=== PATIENT | female | born 1955 | race Hispanic/Latino ===

== ENCOUNTER 2017-12-30 08:42 | Day surgery (SDC) | payer BC ==
[2017-12-30] MEDS ORDERED: NA CHLORIDE 0.9% 1,000 ML ONE (08:55)
[2017-12-30] MEDS ORDERED: FENTANYL CITR 100 MCG/2 ML ONE (10:35)
[2017-12-30] MEDS ORDERED: MIDAZOLAM HCL 2 MG/2 ML INJ ONE (10:35)
[2017-12-30] MEDS ORDERED: PROPOFOL 200 MG/20 ML VIAL IV ONE ×2 (10:35→11:26)
[2017-12-30] MEDS: LIDOCAINE 1% W/EPI 1:100,000 MDV 50 ML VIAL ONE ×2 (10:49→11:04)
--- NOTE | 2017-12-30 13:29 | OP ---
Date of Procedure: 12/30/2017 Surgeon: Allie Vu MD Street Contractor: None. Preoperative Diagnoses: Postmenopausal bleeding, uterovaginal prolapse, cervical polyp. Postoperative Diagnoses: Postmenopausal bleeding, uterovaginal prolapse, cervical polyp. Procedures Performed: Hysteroscopy, dilation and curettage, and cervical polypectomy. Estimated Blood Loss: Minimal. Complications: None. Drains: None. Specimens: Endometrial curettings, which were very scant, and cervical polyp. Findings: The patient with stage II anterior wall prolapse, uterine prolapse, and stage II posterior wall prolapse. POP-Q is 0, +1, -1, genital hiatus 5-6 cm. Perineal body thin. Vaginal length 7 cm, posterior wall 0, -1, and -2. Findings in the uterus, cavity was empty. The polyp at the cervix removed. That was present at the 2 o'clock position in its entirety. Description Of Procedure: After informed consent was verified, patient was brought to the OR. She w as placed on the operating table in a supine fashion. After MAC was given and patient was placed in dorsal lithotomy position, the patient started to cough and was anxious. So at this point, we decide d to give her general anesthetic to keep her fully sedated without any risk of moving at the time of the procedure. After LMA was placed, and the general anesthetic was completely effective, we did her procedure. Pel anna exam was performed and POP-Q as above. Cervix was prepped with Betadine x3. Anterior lip graspe d with 2 Allis clamps. The cervical polyp was visualized. The ring forceps was placed on the polyp, and this was rotated till the polyp came out. The base of the polyp was also cleaned out with anoth er round of turning it till the base was also and all the specimen was handed off for perma ne pathology. Diagnostic slimline hysteroscope was used to pass the cervical canal, traversing the canal under dire ct vision. Uterine cavity was entered. It was empty. The endometrial lining was thin. There did n ot appear to be any internal thickening or polyp. The entire cavity was visualized. The scope was removed after making sure that there was no further cavity length left above the area that was evaluated, since this appeared to have some adhesions. After the scope was removed, endometrial curettings were performed, which was scant, which was consis tent with the cavity as visualized. Then all instruments were removed. Instrument, needle, and spon ge counts were done and were correct at the end of the case. The specimens sent for permanent pathol ogvianney. She has a followup appointment with me in 1 week for results. BERKLEY/SIRIA Voice ID: [id number] Report ID: [id number]
== END 2017-12-30 13:20 | disposition home or self-care (01) ==
LOC: OR 08:42
PROVIDERS: ATTEND Obstetrics & Gynecology
PROC: 0UDB7ZX Extraction of Endometrium, Via Natural or Artificial Opening, Diagnostic (ICD-10-PCS; 2017-12-30)
PROC: 0UBC8ZX Excision of Cervix, Via Natural or Artificial Opening Endoscopic, Diagnostic (ICD-10-PCS; principal; 2017-12-30 10:30)
DX: N95.0 Postmenopausal bleeding (principal); N84.1 Polyp of cervix uteri; N81.2 Incomplete uterovaginal prolapse; E11.9 Type 2 diabetes mellitus without complications; Z88.6 Allergy status to analgesic agent
CPT/HCPCS: 82962; 86304; 88305; J2250; J3010; J7030

== ENCOUNTER 2018-04-07 10:19 | Day surgery (SDC) | payer BC ==
[2018-04-04 12:02] LABS: Urine Appearance CLEAR; Urine Bilirubin NEGATIVE (NEG); Urine Blood TRACE (NEG); Urine Color YELLOW; Urine Glucose NEGATIVE (NEG); Urine Protein NEGATIVE (NEG); Urine Specific Gravity 1.015 (1.005-1.030); Urine Urobilinogen 0.2 mg/dL (0.2-1.0); Urine pH 5.5 (5.0-7.0)
[2018-04-04 12:03] LABS: Urine Microscopic Reflex ORDER UMIC
[2018-04-04 12:06] LABS: Absolute Lymphocytes (CBC) 1.8 K/uL (0.7-4.9); Absolute Monocytes 0.3 K/uL (0.1-1.3); Basophils % 0.5 % (0-1.3); Eosinophils % 3.4 % (0-4.4); Hematocrit 40.8 % (36.0-45.0); Lymphocytes % 33.6 % (15.3-44.8); MCH 30.6 pg (27.0-35.0); MPV 7.4 fL (7.6-11.3); Monocytes % 6.6 % (3.3-12.3); RBC Red Blood Cell Count 4.53 M/uL (3.86-4.86)
[2018-04-04 12:15] LABS: Urine Bacteria <20 /HPF (<20); Urine Culture Reflex Order NOT NEEDED; Urine Mucus SLIGHT /HPF (NONE SEEN); Urine RBC <5 /HPF (NONE SEEN)
[2018-04-07] MEDS ORDERED: NA CHLORIDE 0.9% 1,000 ML ONE ×2 (10:39→12:04)
[2018-04-07] MEDS ORDERED: SCOPOLAMINE HYDROBROMIDE PATCH TD ONE (10:39)
[2018-04-07] MEDS ORDERED: ROCURONIUM 50 MG/5 ML VIAL IV ONE ×2 (10:53→13:06)
[2018-04-07] MEDS ORDERED: PROPOFOL 200 MG/20 ML VIAL IV ONE (10:53)
[2018-04-07] MEDS ORDERED: LIDOCAINE 2% MPF 5 ML VIAL ONE (10:54)
[2018-04-07] MEDS ORDERED: DEXAMETHASONE 10 MG/ML VIAL ONE (10:54)
[2018-04-07] MEDS ORDERED: GLYCOPYRROLATE 0.2 MG/ML SYR ONE ×2 (10:54)
[2018-04-07] MEDS ORDERED: FENTANYL CITR 250 MCG/5 ML ONE (10:55)
[2018-04-07] MEDS ORDERED: MIDAZOLAM HCL 2 MG/2 ML INJ ONE (10:56)
[2018-04-07] MEDS ORDERED: ONDANSETRON HCL 40 MG/20 ML VIAL ONE (10:56)
[2018-04-07] MEDS: CEFAZOLIN 1GM (PREMIX IV) 1 GM/50 ML BAG ONE ×2 (12:02→12:47)
[2018-04-07] MEDS ORDERED: EPHEDRINE SULF 50 MG/10 ML SYR ONE (12:31)
[2018-04-07] MEDS ORDERED: Ringers Lactate 1,000 ML IV ONE (13:26)
[2018-04-07] MEDS ORDERED: VASOPRESSIN 20 UNIT/ML VIAL ONE (13:38)
[2018-04-07] MEDS ORDERED: NA CHLORIDE 0.9% 0 ML IV ONE (13:39)
[2018-04-07] MEDS ORDERED: LIDOCAINE 1% W/EPI 1:100,000 MDV 50 ML VIAL ONE (14:28)
[2018-04-07] MEDS ORDERED: CEFAZOLIN SODIUM 1 GM/VIAL ONE ×2 (14:35→14:39)
[2018-04-07] MEDS ORDERED: NEOSTIGMINE 1 MG/ML -5 ML SYRINGE ONE (15:21)
[2018-04-07] MEDS ORDERED: HYDROCODONE/APAP 5/325 MG TAB ONE (16:42)
[2018-04-07] MEDS ORDERED: PROMETHAZINE 25 MG/ML VIAL ONE (16:42)
--- NOTE | 2018-04-08 13:49 | OP ---
Date of Procedure: 04/07/2018 Surgeon: Allie Vu MD Car Rental Sales Assistant: Geetha Cartwright. Preoperative Diagnoses: Postmenopausal bleeding, pelvic mass, uterovaginal prolapse, stress urinary incontinence. Postoperative Diagnoses: Postmenopausal bleeding, pelvic mass, uterovaginal prolapse, stress urinary incontinence, with pelvic mass and right adnexal mass. Procedures Performed: 1.Total laparoscopic hysterectomy, bilateral salpingo-oophorectomy, pelvic washings. 2.Uterosacral ligament suspension, colpopexy bilaterally, cystoscopy. 3.Incidental superficial cystotomy repair. Ebl: Less than 100, minimal. Complications: Superficial laceration of the bladder leading to repair. Drains: Vanegas catheter. Specimens: Uterus, bilateral tubes, ovaries, pelvic washings, and a right adnexal mass. Disposition: The patient's condition is stable. Findings: Uterus anteflexed with the leiomyoma. A left adnexal mass was seen separate from the ovar y and the tube attached to the distal part of the tube and hanging in the posterior cul-de-sac. Left ovary and tube were normal. The superficial bladder laceration occurred at the time of retraction f or vaginal cuff repair. This was repaired without any problems, and after cystoscopy was performed, there were patent bilateral ureters. The strong jets of urine from both were promptly, then the 3-0 Vicryl suture that was used for closure of the cystotomy appeared to have gone through the mucosa of the bladder. The tiny little area was seen at the dome of the bladder above the level of the vaginal cuff, way above the level of the trigone. This was just left in place. The bladder was filled and drained and there was no leakage even at the detection of the laceration and after repair as well. Indications: The patient is a 63-year-old referred for prolapse. She had postmenopausal bleeding as well. She was evaluated with endometrial cavity visualization and sampling and they were both negat sera for any atypia or malignancy. On ultrasound, she was found to have an adnexal mass about 5 cm. The CA-125 was very low, probably 5. Then on her POP-Q exam, her prolapse was stage II, Mohs defect, biggest defect noted mostly at the apex and when the apex was replaced to the top, the anterior wall defect was inconspicuous. The cough stress test was positive in the office. The patient presented with stress urinary incontinence at the time of her preop, and plan was made to perform a sling at th e end of the procedure. Description Of Procedure: On the day of the surgery, she was re-consented, 1 g of Ancef was given. She was taken back to the OR, placed in a supine fashion on the operating table. After general anest hesia was given, she was placed in a dorsal lithotomy position using Rogelio stirrups. Pelvic exam was performed. Pop-Q was reconfirmed. Abdomen, vulva, vagina, and perineum were prepped and draped in a sterile fashion also making sure that we were ready for the vaginal procedure. On examination here, I noted that there was after reducing the anterior defect significant posterior wall defect as well and mostly perineocele with a wide genital hiatus above 5 cm. However, the patie nt was not consented for any posterior repair or perineorrhaphy at this time, so, no plans were made to perform this. After Vanegas was inserted and attached for retrograde filling to an LR bag, emptied 300 with cysto-tub ing. Large VCare was introduced into the uterus and fixed in place. This area was draped. A 1-cm infraumbilical incision was made with a scalpel using the open laparoscopy technique. Fascia was incised and tagged. Peritoneum was entered with S-retractors and Katie introduced. Site of ent ry was checked and unremarkable. Upper abdominal surface was completely unremarkable as well. Liver and appendix were normal. After placing the patient in Trendelenburg position, epiploica of the sigmoid were sutured with the h elp of a 3-0 Monocryl and brought out through the left upper quadrant with the Julian-Lm needle for retraction. This was placed appropriately without excessive tension. A 1 cm suprapubic, 2 0.5 cm left lower quadrant, right lower quadrant incisions were made with a scal pel and ports placed without any problems. Ureters were traced in their entire course and they were without any distortion from the pelvic brim to the ureteric tunnels. The bladder appeared to be redu ndant, however, no other remarkable changes. The right adnexal mass was attached to distal part of t he tube and the lower pole and medial pole of the ovary about 5 cm with the smooth surface and tubal epithelium was stretched out on the fimbriated end. With the 5 mm LigaSure, the adnexal mass was removed and placed in the right paracolic gutter and hys terectomy was started. Mesosalpinx tube, utero-ovarian ligament was all taken down. The round ligam ent was taken down and the anterior and posterior layers of the broad ligament were opened up. The a nterior was taken all the way over to the opposite round ligament creating a bladder flap and retract ing the bladder inferiorly. The VCare cup was well visualized and the dissection was performed below the level of the cup by retracting the bladder here. Posterior aspect of the peritoneum was taken down to the posterior cup on the left side. Then, the b road ligament was skeletonized to expose the vessels on the opposite side, similar dissection was per formed taking down the utero-ovarian tube, mesosalpinx, round ligament, anterior and posterior broad ligament and then the broad ligament itself with the help of the LigaSure. After the vessels were sk eletonized, then the anterior vaginal wall was dissected. A monopolar hook blade was used to create an incision to enter the vesicovaginal space. Once this was entered, the bladder was dissected infer iorly. There were adhesions of the bladder here but I did not push the bladder completely easily, so they were retracted gently with dissection with the sharp scissors using the LigaSure tip and then t he LigaSure cautery as needed in a limited fashion. Once the anterior vaginal wall was exposed at le ast 2 cm, then dissection was performed posteriorly to make sure that the posterior peritoneum was ta ubaldo down, so the attachment of the uterosacrals or the remnants of the uterosacrals were well visuali zed. The vessels were taken down on both sides. Cardinal ligament was taken down on both sides whic h were very little and colpotomy was performed with a monopolar hook blade in a circumferential fashi on. The specimen was detached and pulled out through the vagina. Vaginal occluder bulb was placed. Then, the left tube and ovary were removed with the help of the LigaSure as well as the right tube a nd ovary. These were all placed in the EndoCatch bag, placed vaginally along with the adnexal mass. The bag was closed and retrieved through the vagina. After the vaginal occluder bulb was placed, this was distending the vaginal canal too much, so I plac ed a glove with the lap pads stuffed in it for retraction of the vagina. Vaginal closure was perform ed with the help of a 0 Vicryl stitch at the left angle, tied in an interrupted fashion and one of th e tails left long. Then, 0 Vicryl suture was taken. A simple suture was placed at the angle closing the angle lateral to it by placing the knot there. Then continuously running this with a continuous running fashion all the way to the left end of the cuff and here this was tied to the lateral part. While I was closing the cuff, there was needed to be retraction of bladder because this was despite complete drainage was falling in the field of vision. So, as there was retraction here, I noted that also at the dome of the bladder, there was a superficial laceration of the bladder as my fast food assistant restaurant manager w as retracting this with an atraumatic grasper. So, this was about less than 1 cm, maybe about half a centimeter and this was mostly the muscle, so the bladder was filled at this point. There was no le ak at all observed, then placed the 3-0 Vicryl suture in mattress fashion and tied this down. There was excellent approximation of the muscularis and the bladder was re-distended. There was no leak. Intracorporeal knots were placed to tie that. Uterosacral suspension was then performed by retracting the top of the vagina with the pushing on the vaginal occluder. Then, the uterosacral ligaments were visualized at least 7-8 cm above the level o f the vaginal cuff from the mid pelvic area. The right one was first sutured from lateral to medial with 0 PDS sutures were taken and reattached to the top of the vagina to the posterior rectovaginal s eptum and then anterior fascia of the anterior vaginal wall. With these sutures were taken and the c uff was imbricated, the suture was tied down. Then, in a similar fashion, the suture was taken throu gh the left uterosacral starting at the mid pelvis and coming down all the way with the 3 running sut ures. Then, the posterior vaginal wall and the anterior vaginal wall imbricating the closure. The s uture was tied down. The culdoplasty was performed with the help of 3-0 Vicryl in the posterior peritoneum bringing it tog ether and then anteriorly closing the peritoneum on top of the bladder, bringing the anterior periton eum over the cuff without exposure of any sutures of the superficial laceration repair. The peritone um was closed completely over this and cystoscopy was performed with the 17-Kittitian sheath, 30-degree lens and normal saline for distention medium. There was an excellent filling and both ureteric orifi dali were well visualized and there were strong jets of urine from them promptly. At the dome of the bladder, I noted a suture. The 30-degree lens was changed to 70. Once there was a pucker, and then with the 70, I was able to realize that this was a 3-0 Vicryl suture. It was a very 2 mm size exposu re into the mucosa left with an intact bladder mucosa without any appearance of any trauma. So, I de cided to leave the suture in place. Bladder was drained. Vanegas was placed. Vaginal exam was performed. There was excellent support of the apex as well as the anterior vaginal wall. There was no prolapse noted. Most of the defect was noted in the posterior wall and the large genital hiatus. At this time, since the patient was not co nsented, no further sutures were done. I decided not to perform the sling due to the fact that there was already the laceration of the bladder muscle, even though this was small and minor, it was repai red, I did not want to have any further risk of injury to the bladder with the sling. The sling was not placed for this reason. So, I will plan to talk to the patient and bring her back for a second p rocedure after her current surgery is fully healed. After changing the gloves, laparoscopy was completed by pulling out the trocars. Thorough irrigation and suction were performed. The ureters had no evidence of any injury laparoscopically. The fascia was closed at the umbilicus after all the ports were removed. Fascia was closed at the umbilicus wi th a 0 Vicryl tack sutures, then a simple 0 Vicryl suture at the suprapubic fascial incision. All in cisions closed with the help of 4-0 Monocryl in an interrupted fashion. All instrument, needle and s ponge counts were done and were correct at the end of the procedure. The patient has a Vanegas cathete r to go home with, Macrobid 100 mg daily for 10 days. She will get the Vanegas removed in 7 days. The patient was recovered from anesthesia and taken to PACU in stable condition. Discussion was held wi th her daughter explaining the findings of the surgery, the incidental cystotomy, incidental supervis ion bladder laceration and repair and the need for the catheter and that the sling was not performed and the reasoning behind it. So, followup with me in 1 week and then subsequent followup visits. BERKLEY/SIRIA Voice ID: [id number] Report ID: [id number]
== END 2018-04-07 17:15 | disposition home or self-care (01) ==
LOC: OR 10:19
PROVIDERS: ATTEND Obstetrics & Gynecology
PROC: 0UT94ZZ Resection of Uterus, Percutaneous Endoscopic Approach (ICD-10-PCS; 2018-04-07)
PROC: 0UT24ZZ Resection of Bilateral Ovaries, Percutaneous Endoscopic Approach (ICD-10-PCS; 2018-04-07)
PROC: 0UT74ZZ Resection of Bilateral Fallopian Tubes, Percutaneous Endoscopic Approach (ICD-10-PCS; 2018-04-07)
PROC: 0UBC4ZZ Excision of Cervix, Percutaneous Endoscopic Approach (ICD-10-PCS; 2018-04-07)
PROC: 0USG4ZZ Reposition Vagina, Percutaneous Endoscopic Approach (ICD-10-PCS; principal; 2018-04-07 11:30)
DX: N81.2 Incomplete uterovaginal prolapse (principal); D25.9 Leiomyoma of uterus, unspecified; N80.0 Endometriosis of uterus; N72 Inflammatory disease of cervix uteri; D27.0 Benign neoplasm of right ovary; N39.3 Stress incontinence (female) (male); N95.0 Postmenopausal bleeding; N99.71 Accidental puncture and laceration of a genitourinary system organ or structure during a genitourinary system procedure; E11.9 Type 2 diabetes mellitus without complications; Z79.84 Long term (current) use of oral hypoglycemic drugs
CPT/HCPCS: 36415; 81003; 81015; 82962; 85025; 86850; 86900; 86901; 88108; 88305; 88307; J0690; J1100; J2250; J2405; J2550; J2704; J2710; J3010; J7030

== ENCOUNTER 2022-12-03 09:52 | Day surgery (SDC) | payer BC, OTHER ==
[2022-12-03] MEDS ORDERED: Ringers Lactate 0 ML IV ONE (10:14)
[2022-12-03] MEDS ORDERED: NA CHLORIDE 0.9% 1,000 ML ONE (10:14)
[2022-12-03] MEDS ORDERED: propofoL 200 MG/20 ML VIAL IV ONE (11:00)
[2022-12-03] MEDS ORDERED: ROCURONIUM 50 MG/5 ML VIAL IV ONE (11:01)
[2022-12-03] MEDS ORDERED: LIDOCAINE 2% MPF 5 ML VIAL ONE (11:01)
[2022-12-03] MEDS ORDERED: MIDAZOLAM HCL 2 MG/2 ML INJ ONE (11:01)
[2022-12-03] MEDS ORDERED: FENTANYL CITR 100 MCG/2 ML ONE (11:01)
[2022-12-03] MEDS ORDERED: ONDANSETRON 4 MG/2 ML VIAL ONE (11:04)
[2022-12-03] MEDS: CEFAZOLIN SODIUM 2 GM/VIAL ONE ×2 (11:09→11:30)
[2022-12-03] MEDS: BUPIVACAINE 0.25% PF 30 ML VIAL ONE ×2 (11:09→11:40)
[2022-12-03] MEDS ORDERED: dexAMETHasone 10 MG/ML VIAL ONE (11:49)
--- NOTE | 2022-12-03 12:27 | P.OP ---
Preoperative diagnosis: Umbilical / Ventral Hernias Postoperative diagnosis: Umbilical / Ventral Hernias Primary procedure: Laparoscopic Ventral Hernia Repair with mesh Anesthesia: GETA + Local Estimated blood loss: <5cc Specimen: None Findings: ~3cm hernia Complications: None Implants: Bard Ventralite ST with echo 11.4cm Round, Sorbafix x 45 Transferred to: Recovery Room Condition: Good
[2022-12-03] MEDS ORDERED: KETOROLAC 30 MG/ML INJ ONE (12:33)
[2022-12-03] MEDS ORDERED: MORPHINE 10 MG/ML VIAL ONE (12:35)
[2022-12-03] MEDS ORDERED: Ringers Lactate 1,000 ML IV ONE (12:59)
--- NOTE | 2022-12-03 13:23 | OP ---
Date of Procedure: 12/03/2022 Surgeon: Andrea Gaines MD, Preoperative Diagnosis: Umbilical hernia/ventral hernia. Postoperative Diagnosis: Umbilical hernia/ventral hernia. Procedure Performed: Laparoscopic ventral hernia repair with mesh. Anesthesia: General endotracheal plus local with 0.25% Marcaine. Estimated Blood Loss: Less than 5 cc. Specimen: None. Findings: Approximately 3 cm overall hernia. There were in fact 2 small satellite hernias in a Swis s-cheese type appearance, which encompassed a total of 3 cm round at the periumbilical position. Complications: None. Implants: Bard Ventralight ST mesh with Echo Positioning System, 11.4 cm round mesh utilized and Sor baFix absorbable fixation tacks x45 packs utilized. Disposition: The patient was transferred to the recovery room in good condition. Procedure In Detail: After informed consent was obtained, the patient was brought to the operating r oom, prepped and draped in the usual sterile fashion after adequate anesthesia was achieved. I made a left upper quadrant incision down to subcutaneous tissues. A 5 mm 0-degree optical trocar was intr oduced into the abdomen without evidence of complication. Insufflation was obtained to 15 mmHg at th is time. There was no injury to vital structure upon entry into the abdomen. Additional trocar was placed in the left lower quadrant. This was similarly anesthetized, sharply incised, and a 5 mm troc ar placed under direct visualization without evidence of complication. I then proceeded to use an ap plied equivalent LigaSure type bipolar device to take down the adipose and omental attachments and he rnia contents, which was adipose tissue at this point, which was incarcerated. After the incarcerate d adipose tissue was reduced through the normal abdominal compartment, hemostasis was easily achieved at this point without additional hemostatic maneuvers required. I sized the hernia at this time and found to be approximately 3 cm in size. I then used the Endo Stitch with a 0 V-Loc suture to run th e defect close in a running fashion, closed the defect having good apposition of the tissues. At thi s point, I deployed 11.4 cm Bard Ventralight mesh with Echo Positioning System, secured to the anteri or abdominal wall using a double crown of SorbaFix absorbable fixation tacks, 45 tacks utilized total . I then inspected the area for proper hemostasis and was achieved. The balloon deployment was foun d to be intact on the back table. I then rotated the patient away slightly and closed the 12 mm troc ar site using a Julian-Lm suture passer with 0 Vicryl in an interrupted fashion with good appro ximation of tissues. All counts were correct at the end of the case. ALESSANDRO/SIRIA Voice ID: [id number] Report ID: [id number]
[2022-12-03 13:59] VITALS: BP 126/71; TEMP 97; O2SAT 100
[2022-12-03] MEDS ORDERED: HYDROCODONE/APAP 7.5/325 MG TAB ONE (14:15)
== END 2022-12-03 14:50 | disposition home or self-care (01) ==
LOC: OR 09:52
PROVIDERS: ATTEND Surgery
PROC: 0WUF4JZ Supplement Abdominal Wall with Synthetic Substitute, Percutaneous Endoscopic Approach (ICD-10-PCS; principal; 2022-12-03 11:15)
DX: K42.9 Umbilical hernia without obstruction or gangrene (principal)
CPT/HCPCS: 36415; 80048; 82947; 93005; C1781; J1100; J2001; J2250; J2405; J2704; J3010; J7030; J7120

== ENCOUNTER 2024-09-13 14:10 | Emergency (ER) | payer BC, OTHER ==
--- OUTSIDE RECORDS SUMMARY | 2024-09-13 14:14 | XMS REPORT | Continuity of Care Document ---
Author Name Unknown Address [address] [facility]. [address] [place] [address] [facility] Address [address] [facility] [address] [place] [address] Care Team Providers Care [place] Nurse Name Role Phone Kyle Giraldo DO Primary Care Physician [phone] Doctor Unassigned, [place] Attending Clinician U navailKYLE Cortez Attending Clinician Unavailable CARROLL BUENO Attending Clinician Unavailable EbCarroll Tran Attending Clinician [phone] Unknown, Attending Attending Clinician Unavailab le Doctor Unassigned, [place] Attending Clinician U CHING Burden Attending Clinician Unavaila ble Ching Fuller Attending Clinician + [phone] KRISTA PANDA Attending Clinician Unavailable Krista Salazar S Attending Clinician [phone] RADIOLOGY Attending Clinician Unavailable Radiology Attending Clinician Unavailable DOYLE NOVA Attending Clinician UnavailDOYLE Metz Attending Clinician Unavailehsan Peng OT, Shyann A Attending Clinician Unavail able Doyle Nova MD Attending Clinician [phone] Rekha Luo MD Attending Clinician [phone] REKHA LUO Attending Clinician Unavailable Santana Kincaid MD Attending Clinician [phone]- [phone] SANTANA KINCAID Attending Clinician EVELYN Michel Attending Clinician Unavailable SHARLENE LACY Attending Clinician Unavailab marci Landry, Adc Fam Pob I Attending Clinician Unavailab Sharlene Nj Attending Clinician + [phone] TONIO COHEN Attending Clinician Unavailable Tonio Cohen NP Attending Clinician [phone] Pcp, Patient Does Not Have A Attending Clinician Mary Carnes RN Attending Clinician UnavailMarely Overton Attending Clinician MARELY STEVE Attending Clinician UnavailKYLE Guerrero Admitting Clinician Unavailable REKHA LUO Admitting Clinician Unavailable SANTANA KINCAID Admitting Clinician TONIO Seals Admitting Clinician Unavailable Payers Payer Name Policy Type Policy Number Effective Date Expirati on Date Source Problems Condition Name Condition Details Condition Category Status Onset Date Resolution Date Last Treatment Date Treating Clinician Comments Source No known active problems No known active problems Disease [facility] Hyperlipid emia (disorder) Hyperlipid emia (disorder) Active Problem 11/28/2020 [facility] Problem Active 2020-11-28 21:52:52 Yudy Arguello Trigeminal neuralgia (disorder) Trigeminal neuralgia (disorder) Active Problem 11/28/2020 [facility] Problem Active 2020-11-28 21:52:52 Yudy Arguello Diabetes mellitus type 2 (disorder) Diabetes mellitus type 2 (disorder) Active Problem 11/28/2020 [facility] Problem Active 2020-11-28 21:52:52 Yudy Arguello Allergies, Adverse Reactions, Alerts Allergy Name Allergy Type Status Severity Reaction(s) Onset Date Inactive Date Treating Clinician Comments Source CODEINE SULFATE DRUG INGREDI Active Anaphylaxis 18 00:00: 00 [facility] Codeine Sulfate Propensi ty to adverse reaction s Active Anaphylaxis 11-17 00:00: 00 [facility] NO KNOWN ALLERGIE S Drug Class Active [facility] codeine codeine Active Yudy Arguello Social History Social Habit Start Date Stop Date Quantity Comments Source Sex Assigned At [facility] Gender identity [facility] Alcohol intake 2023-07-28 00:00:00 2023-07-28 00:00:00 Lifetime non-drinker (finding) [facility] Alcoholic beverage intake 2023-07-28 00:00:00 2023-07-28 00:00:00 Lifetime non-drinker (finding) [facility] Exposure to SARS-CoV-2 (event) 2022-08-08 00:00:00 2022-08-18 11:44:00 Not sure [facility] Tobacco use and exposure 2022-02-25 00:00:00 2022-02-25 00:00:00 Smokeless tobacco non-user [facility] History of Social function 2022-02-25 00:00:00 2022-02-25 00:00:00 [facility] Social History 2020-09-26 14:58:49 2020-09-26 14:58:49 Patricio Arguello Smoking Status Start Date Stop Date Source Tobacco smoking consumption unknown [facility] Never smoked tobacco [facility] Medications Ordered Medication Name Filled Medication Name Start Date Stop Date Current Medication? Ordering Clinician Indication Dosage Frequency Signature (SIG) Comments Components Source omeprazole 20 mg capsule 07-25 00:00: 00 Yes [facility] RESTASIS 0.05 % ophthalmic drops 16 00:00: 00 Yes [facility] REPATHA SURECLICK 140 mg/mL subcutaneou s injection 12 00:00: 00 Yes [facility] LANTUS SOLOSTAR U-100 INSULIN 100 unit/mL (3 mL) injection -24 00:00: 00 Yes [facility] celecoxib 200 mg capsule 2-24 00:00: 00 Yes [facility] OZEMPIC 0.25 mg or 0.5 mg (2 mg/3 mL) PnIj 2023- 2-20 00:00: 00 Yes [facility] acetaminoph en (TYLENOL) tablet 1,000 mg 11-12 04:45: 00 11-12 03:55 :00 No 1000mg 1,000 mg, Oral, ONCE, 1 dose, On Wed11/11/22 at 2345, [facility] FENTanyl PF (SUBLIMAZE (PF)) injection 25 mcg 11-12 04:45: 00 11-12 03:57 :00 No 25ug 25 mcg, Intramuscu lar, ONCE, 1 dose, On Wed11/11/22 at 2345, [facility] methocarbam oL (ROBAXIN) tablet 500 mg 11-12 04:30: 00 11-12 04:30 :00 No 500mg 500 mg, Oral, ONCE, 1 dose, On Wed11/11/22 at 2330, Routine [facility] naproxen (NAPROSYN) tablet 500 mg 11-10 23:15: 00 11-10 22:47 :00 No 500mg 500 mg, Oral, ONCE, 1 dose, On Wed11/10/22 at 1815, Routine [facility] ondansetron (ZOFRAN-ODT ) disintegrat ing tablet 4 mg 11-10 23:00: 00 11-10 22:15 :00 No 4mg 4 mg, Oral, ONCE, 1 dose, On Wed11/10/22 at 1800, [facility] methocarbam oL (ROBAXIN) tablet 1,000 mg 11-10 22:15: 00 11-10 22:47 :00 No 1000mg 1,000 mg, Oral, ONCE, 1 dose, On Wed11/10/22 at 1715, [facility] methocarbam oL 500 mg tablet 11-10 00:00: 00 Yes [id number] 1000mg Take 2 tablets by mouth 4 (four) times daily as needed for Pain (scale 4-6). [facility] naproxen (NAPROSYN) 500 mg tablet 11-10 00:00: 00 Yes [id number] 500mg Take 1 tablet by mouth in the morning and 1 tablet in the evening. Take with meals. [facility] FENTanyl PF (SUBLIMAZE (PF)) injection 50 mcg 2021-05 04:30: 00 02-18 04:31 :00 No 50ug 50 mcg, Intramuscu lar, ONCE, 1 dose, On Wed02/17/22 at 2330, Routine [facility] ibuprofen 800 mg tablet 2021-05 00:00: 00 Yes [id number] 800mg Take 1 tablet by mouth every 8 (eight) hours as needed for Pain (scale 4-6). [facility] iopamidol (ISOVUE 370-500 mL) injection 100 mL 05-28 14:37: 00 05-28 14:37 :00 No [id number] 100mL 100 mL, Intravenou s, ONCE, 1 dose, On Wed05/28/21 at 0845, Routine [facility] Carbamazepi ne 200 MG Oral Tablet [Tegretol] 09-26 16:09: 00 Yes 100 mg = 0.5 tab, PO, BID, # 30 tab, 3 Refill(s), Pharmacy: [facility] [id number], 157.48, cm, 09/26/20 9:56:00 CDT, Height, 80.909, kg, 09/26/20 9:56:00 CDT, Weight Yudy Arguello gemfibrozil 600 mg oral tablet 09-26 15:03: 00 Yes 600 mg = 1 tab, PO, BID, # 180 tab, 0 Refill(s) Yudy Arguello Metformin hydrochlori de 500 MG Oral Tablet 09-26 15:02: 00 Yes 500 mg = 1 tab, PO, Daily, # 30 tab, 0 Refill(s) Yudy Arguello metoclopram wilner HCl (REGLAN) injection 10 mg 11-18 02:00: 00 11-18 01:39 :00 No 10mg 10 mg, Slow IV Push, ONCE, 1 dose, 11/18/19 at 2100, ARLETTE [facility] dexamethaso ne (DECADRON PHOSPHATE) injection 10 mg 11-18 02:00: 00 11-18 01:37 :00 No 10mg 10 mg, IV Push, ONCE, 1 dose, 11/18/19 at 2100, STAT [facility] diphenhydrA MINE (BENADRYL) injection 25 mg 11-18 02:00: 00 11-18 01:38 :00 No 25mg 25 mg, Slow IV Push, ONCE, 1 dose, 11/18/19 at 2100, STAT [facility] ketorolac (TORADOL) injection 30 mg 11-18 02:00: 00 11-18 01:41 :00 No 30mg 30 mg, Slow IV Push, ONCE, 1 dose, 11/18/19 at 2100, Routine
membership correspondent approving Restricted medication : TONIO COHEN [facility] NaCl 0.9% (NS) bolus infusion 1,000 mL 11-18 01:00: 00 11-18 04:51 :00 No 1000mL at 999 mL/hr, 1,000 mL, IV Infusion, ONCE, 1 dose, 11/18/19 at 2000, [facility] No known medications 11-17 19:57: 13 No [facility] No known medications No Un sima [facility] No known medications No Un sima [facility] Immunizations Ordered Immunization Name Filled Immunization Name Date Status Comments Source SARS-COV-2 COVID-19 PFIZER VACCINE 2020-08-09 00:00:00 Completed [facility] SARS-COV-2 COVID-19 PFIZER VACCINE 2020-08-09 00:00:00 Completed [facility] SARS-COV-2 COVID-19 PFIZER VACCINE 2020-08-09 00:00:00 Completed [facility] SARS-COV-2 COVID-19 PFIZER VACCINE 2020-08-09 00:00:00 Completed [facility] SARS-COV-2 COVID-19 PFIZER VACCINE 2020-08-09 00:00:00 Completed [facility] SARS-COV-2 COVID-19 PFIZER VACCINE 2020-08-09 00:00:00 Completed [facility] SARS-COV-2 COVID-19 PFIZER VACCINE 2020-08-09 00:00:00 Completed [facility] SARS-COV-2 COVID-19 PFIZER VACCINE 2020-08-09 00:00:00 Completed [facility] SARS-COV-2 COVID-19 PFIZER VACCINE 2020-08-09 00:00:00 Completed [facility] SARS-COV-2 COVID-19 PFIZER VACCINE 2020-08-09 00:00:00 Completed [facility] SARS-COV-2 COVID-19 PFIZER VACCINE 2020-08-09 00:00:00 Completed [facility] SARS-COV-2 COVID-19 PFIZER VACCINE 2020-08-09 00:00:00 Completed [facility] SARS-COV-2 COVID-19 PFIZER VACCINE 2020-08-09 00:00:00 Completed [facility] SARS-COV-2 COVID-19 PFIZER VACCINE 2020-08-09 00:00:00 Completed [facility] SARS-COV-2 COVID-19 PFIZER VACCINE 2020-08-09 00:00:00 Completed [facility] SARS-COV-2 COVID-19 PFIZER VACCINE 2020-08-09 00:00:00 Completed [facility] SARS-COV-2 COVID-19 PFIZER VACCINE 2020-08-09 00:00:00 Completed [facility] SARS-COV-2 COVID-19 PFIZER VACCINE 2020-08-09 00:00:00 Completed [facility] SARS-COV-2 COVID-19 PFIZER VACCINE 2020-08-09 00:00:00 Completed [facility] SARS-COV-2 COVID-19 PFIZER VACCINE 2020-08-09 00:00:00 Completed [facility] SARS-COV-2 COVID-19 PFIZER VACCINE 2020-08-09 00:00:00 Completed [facility] SARS-COV-2 COVID-19 PFIZER VACCINE 2020-08-09 00:00:00 Completed [facility] SARS-COV-2 COVID-19 PFIZER VACCINE 2020-08-09 00:00:00 Completed [facility] SARS-COV-2 COVID-19 PFIZER VACCINE 2020-08-09 00:00:00 Completed [facility] SARS-COV-2 COVID-19 PFIZER VACCINE 2020-08-09 00:00:00 Completed [facility] SARS-COV-2 COVID-19 PFIZER VACCINE 2020-07-19 00:00:00 Completed [facility] SARS-COV-2 COVID-19 PFIZER VACCINE 2020-07-19 00:00:00 Completed [facility] SARS-COV-2 COVID-19 PFIZER VACCINE 2020-07-19 00:00:00 Completed [facility] SARS-COV-2 COVID-19 PFIZER VACCINE 2020-07-19 00:00:00 Completed [facility] SARS-COV-2 COVID-19 PFIZER VACCINE 2020-07-19 00:00:00 Completed [facility] SARS-COV-2 COVID-19 PFIZER VACCINE 2020-07-19 00:00:00 Completed [facility] SARS-COV-2 COVID-19 PFIZER VACCINE 2020-07-19 00:00:00 Completed [facility] SARS-COV-2 COVID-19 PFIZER VACCINE 2020-07-19 00:00:00 Completed [facility] SARS-COV-2 COVID-19 PFIZER VACCINE 2020-07-19 00:00:00 Completed [facility] SARS-COV-2 COVID-19 PFIZER VACCINE 2020-07-19 00:00:00 Completed [facility] SARS-COV-2 COVID-19 PFIZER VACCINE 2020-07-19 00:00:00 Completed [facility] SARS-COV-2 COVID-19 PFIZER VACCINE 2020-07-19 00:00:00 Completed [facility] SARS-COV-2 COVID-19 PFIZER VACCINE 2020-07-19 00:00:00 Completed [facility] SARS-COV-2 COVID-19 PFIZER VACCINE 2020-07-19 00:00:00 Completed [facility] SARS-COV-2 COVID-19 PFIZER VACCINE 2020-07-19 00:00:00 Completed [facility] SARS-COV-2 COVID-19 PFIZER VACCINE 2020-07-19 00:00:00 Completed [facility] SARS-COV-2 COVID-19 PFIZER VACCINE 2020-07-19 00:00:00 Completed [facility] SARS-COV-2 COVID-19 PFIZER VACCINE 2020-07-19 00:00:00 Completed [facility] SARS-COV-2 COVID-19 PFIZER VACCINE 2020-07-19 00:00:00 Completed [facility] SARS-COV-2 COVID-19 PFIZER VACCINE 2020-07-19 00:00:00 Completed [facility] SARS-COV-2 COVID-19 PFIZER VACCINE 2020-07-19 00:00:00 Completed [facility] SARS-COV-2 COVID-19 PFIZER VACCINE 2020-07-19 00:00:00 Completed [facility] SARS-COV-2 COVID-19 PFIZER VACCINE 2020-07-19 00:00:00 Completed [facility] SARS-COV-2 COVID-19 PFIZER VACCINE 2020-07-19 00:00:00 Completed [facility] SARS-COV-2 COVID-19 PFIZER VACCINE 2020-07-19 00:00:00 Completed [facility] SARS-COV-2 COVID-19 PFIZER VACCINE Unknown Completed [facility] SARS-COV-2 COVID-19 PFIZER VACCINE Unknown Completed [facility] SARS-COV-2 COVID-19 PFIZER VACCINE Unknown Completed [facility] SARS-COV-2 COVID-19 PFIZER VACCINE Unknown Completed [facility] SARS-COV-2 COVID-19 PFIZER VACCINE Unknown Completed [facility] Vital Signs Vital Name Observation Time Observation Value Comments S ource Systolic blood pressure 2023-07-28 22:53:00 150 mm[Hg] [place] [facility] Diastolic blood pressure 2023-07-28 22:53:00 94 mm[Hg] [place] [facility] Heart rate 2023-07-28 22:50:00 76 /min [facility] Body temperature 2023-07-28 22:50:00 36.72 Jayna [facility] Respiratory rate 2023-07-28 22:50:00 15 /min [facility] Body height 2023-07-28 22:50:[address] [facility] Body weight 2023-07-28 22:50:[address] [facility] BMI 2023-07-28 22:50:00 34.35 kg/m2 [facility] Oxygen saturation in Arterial blood by Pulse oximetry 2023-07-28 22:50:00 96 /min [facility] Systolic blood pressure 2022-11-12 04:02:35 128 mm[Hg] [facility] Diastolic blood pressure 2022-11-12 04:02:35 83 mm[Hg] [facility] Heart rate 2022-11-12 04:02:35 89 /min Unive [facility] Respiratory rate 2022-11-12 04:02:35 16 /min [facility] Oxygen saturation in Arterial blood by Pulse oximetry 2022-11-12 04:02:35 97 /min [facility] Body temperature 2022-11-12 03:10:00 37.28 Jayna [facility] Body height 2022-11-12 03:10:00 162.6 cm [facility] Body weight 2022-11-12 03:10:00 83.235 kg [facility] BMI 2022-11-12 03:10:00 31.50 kg/m2 [facility] Systolic blood pressure 2022-11-10 21:27:00 139 mm[Hg] [facility] Diastolic blood pressure 2022-11-10 21:27:00 101 mm[Hg] [facility] Heart rate 2022-11-10 21:27:00 98 /min Unive [facility] Body temperature 2022-11-10 21:27:00 37.06 Jayna [facility] Respiratory rate 2022-11-10 21:27:00 16 /min [facility] Body height 2022-11-10 21:27:[address] [facility] Body weight 2022-11-10 21:27:00 81.647 kg [facility] BMI 2022-11-10 21:27:00 30.90 kg/m2 [facility] Oxygen saturation in Arterial blood by Pulse oximetry 2022-11-10 21:27:00 100 /min [facility] Body height 2022-04-08 20:04:00 157.5 cm [facility] Body weight 2022-04-08 20:04:00 78.019 kg [facility] BMI 2022-04-08 20:04:00 31.46 kg/m2 [facility] Body height 2022-03-25 19:09:00 157.5 cm [facility] Body weight 2022-03-25 19:09:00 78.019 kg [facility] BMI 2022-03-25 19:09:00 31.46 kg/m2 [facility] Systolic blood pressure 2022-02-25 19:33:00 128 mm[Hg] [facility] Diastolic blood pressure 2022-02-25 19:33:00 77 mm[Hg] [facility] Heart rate 2022-02-25 19:33:00 70 /min Unive [facility] Body height 2022-02-25 19:33:00 157.5 cm [facility] Body weight 2022-02-25 19:33:00 78.019 kg [facility] BMI 2022-02-25 19:33:00 31.46 kg/m2 [facility] Systolic blood pressure 2022-02-18 03:59:00 187 mm[Hg] [facility] Diastolic blood pressure 2022-02-18 03:59:00 96 mm[Hg] [facility] Heart rate 2022-02-18 03:59:00 91 /min Unive [facility] Body temperature 2022-02-18 03:59:00 36.89 Jayna [facility] Respiratory rate 2022-02-18 03:59:00 18 /min [facility] Body height 2022-02-18 03:59:00 157.5 cm [facility] Body weight 2022-02-18 03:59:00 78.019 kg [facility] BMI 2022-02-18 03:59:00 31.46 kg/m2 Univ [facility] Systolic blood pressure 2019-11-19 04:00:00 101 mm[Hg] [facility] Diastolic blood pressure 2019-11-19 04:00:00 56 mm[Hg] [facility] Heart rate 2019-11-19 04:00:00 99 /min Un[facility] Respiratory rate 2019-11-19 04:00:00 18 /min [facility] Oxygen saturation in Arterial blood by Pulse oximetry 2019-11-19 04:00:00 92 /min [facility] Body temperature 2019-11-19 00:51:00 38.39 Jayna [facility] Body height 2019-11-19 00:51:00 165.1 cm [facility] Body weight 2019-11-19 00:51:00 90.266 kg [facility] BMI 2019-11-19 00:51:00 33.12 kg/m2 [facility] Systolic blood pressure 2019-11-19 04:00:00 101 mm[Hg] [facility] Diastolic blood pressure 2019-11-19 04:00:00 56 mm[Hg] [facility] Heart rate 2019-11-19 04:00:00 99 /min Unive [facility] Respiratory rate 2019-11-19 04:00:00 18 /min [facility] Oxygen saturation in Arterial blood by Pulse oximetry 2019-11-19 04:00:00 92 /min [facility] Body temperature 2019-11-19 00:51:00 38.39 Jayna [facility] Body height 2019-11-19 00:51:[address] [facility] Body weight 2019-11-19 00:51:00 90.266 kg [facility] BMI 2019-11-19 00:51:00 33.12 kg/m2 [facility] Heart Rate 2020-09-26 14:56:00 Sarmad Arguello Respitory Rate 2020-09-26 14:56:00 [facility] Height 2020-09-26 14:56:00 157.48 cm [facility] Weight 2020-09-26 14:56:00 [facility] BMI Calculated 2020-09-26 14:56:[facility] Systolic (mm Hg) 2020-09-26 14:56:00 [facility] Diastolic (mm Hg) 2020-09-26 14:56:00 [facility] Procedures Procedure Date / Time Performed Performing Clinician Source XR HAND 3+ VW RIGHT 2023-07-28 23:14:28 Carroll Bueno [facility] XR CERVICAL SPINE 3 VW 2023-02-24 14:27:44 Gardenia Giraldo [facility] CONSENT/REFUSAL FOR DIAGNOSIS AND TREATMENT 2022-11-12 03:01:26 Doctor Unassigned, [place] [facility] ASSIGNMENT OF BENEFITS 2022-11-10 22:43:54 Docto r Unassigned, [place] [facility] URINALYSIS 2022-11-10 22:15:00 Krista Panda [facility] NOTICE OF PRIVACY PRACTICES 2022-11-10 21:22:49 Doctor Unassigned, [place] [facility] CONSENT/REFUSAL FOR DIAGNOSIS AND TREATMENT 2022-11-10 21:22:17 Doctor Unassigned, [place] [facility] BI SCREENING TOMOSYNTHESIS BILATERAL 2022-09-17 14:48:00 Requisition, Paper [facility] ASSIGNMENT OF BENEFITS 2022-09-17 14:23:24 Docto r Unassigned, [place] [facility] XR SHOULDER 2+ VW BILATERAL 2022-05-11 18:52:00 Kyle Giraldo [facility] DISABILITY/FMLA 2022-04-07 06:01:00 Doctor Unass igned, [place] [facility] DISABILITY/FMLA 2022-03-20 06:01:00 Doctor Unass igned, [place] [facility] ASSIGNMENT OF BENEFITS 2022-02-25 17:41:42 Docto r Unassigned, [place] [facility] ED ORTHOPEDIC INJURY TREATMENT - FRACTURE 2022-02-18 04:37:08 Rekha Luo [facility] XR WRIST 3+ VW RIGHT 2022-02-18 04:33:28 Marques Luo i [facility] XR HAND 3+ VW RIGHT 2022-02-18 04:33:09 Rekha Luo [facility] CONSENT/REFUSAL FOR DIAGNOSIS AND TREATMENT 2022-02-18 03:53:07 Doctor Unassigned, [place] [facility] BI DIAGNOSTIC TOMOSYNTHESIS BILATERAL 2021-11-18 19:37:00 Requisition, Paper [facility] CONSENT/REFUSAL FOR DIAGNOSIS AND TREATMENT 2021-11-18 18:26:57 Doctor Unassigned, [place] [facility] ASSIGNMENT OF BENEFITS 2021-11-18 18:26:34 Docto r Unassigned, [place] [facility] CT ABDOMEN PELVIS W CONTRAST 2021-05-28 14:43:14 Requisition, Paper [facility] HB CREATININE BLOOD 2021-05-28 14:32:00 Santana Lazo [facility] CONSENT/REFUSAL FOR DIAGNOSIS AND TREATMENT 2021-05-28 14:06:31 Doctor Unassigned, [place] [facility] ASSIGNMENT OF BENEFITS 2021-05-28 14:06:15 Saleemto r Unassigned, [place] [facility] US ABDOMEN COMPLETE 2021-05-14 14:23:16 Zoë Baptiste [facility] NOTICE OF BILLING PRACTICES FOR MEDICARE PATIENTS 2021-05-14 13:43:10 Doctor Unassigned, [place] [facility] NO SHOW OR MISSED APPOINTMENT POLICY ACKNOWLEDGEMENT 2021-05-14 13:42:43 Doctor Unassigned, [place] [facility] URINALYSIS 2019-11-19 03:39:00 Tonio Cohen [facility] LIPASE 2019-11-19 01:34:00 Tonio Cohen [facility] TROPONIN I 2019-11-19 01:34:00 Tonio Cohen [facility] HEPATIC FUNCTION PANEL ([id number]) (ALB,T.PRO,BILI T,BU/BC,ALT,AST,ALK PHOS) 2019-11-19 01:34:00 Tonio Cohen [facility] BASIC METABOLIC PANEL (NA, K, CL, CO2, GLUCOSE, BUN, CREATININE, CA) 2019-11-19 01:34:00 Tonio Cohen [facility] CBC WITH DIFF 2019-11-19 01:34:00 Tonio Cohen [facility] N-TERMINAL PRO-BNP 2019-11-19 01:34:00 Tonio Cohen [facility] XR CHEST 1 VW 2019-11-19 01:22:47 Tonio Cohen [facility] EKG-12 LEAD 2019-11-19 00:58:50 Tonio Cohen [facility] CONSENT/REFUSAL FOR DIAGNOSIS AND TREATMENT 2019-11-19 00:31:11 Doctor Unassigned, [place] [facility] Oophorectomy<sup>1</sup> Mem katya Arguello Encounters Start Date/Time End Date/Time Encounter Type Admission Type Attending [facility] Care Facility Care Department Encounter ID Source 2024-03-10 00:00:00 2024-04-15 18:22:51 Patient Secure Msg Doctor Unassigned, [place] Doctor Unassigned, [place] [facility] 1.2.840.114 350.1.13.10 4.2.7.2.686 [id number] [facility] 2023-11-18 11:57:16 2023-11-18 23:59:00 Outpatient R KYLE GIRALDO [facility] [id number] [facility] 2023-11-18 11:57:16 2023-11-18 23:59:00 Hospital Encounter Kyle Giraldo [facility] 1..840.114 350.1.13.10 4.2.7.2.686 [id number] [facility] 2023-07-28 18:00:25 2023-07-28 23:59:00 Outpatient R CARROLL BUENO [facility] [id number] [facility] 2023-07-28 18:00:25 2023-07-28 23:59:00 Hospital Encounter Carroll Bueno [facility] 1.2840.114 350.1.13.10 4.2.7.2.686 [id number] [facility] 2023-07-28 17:40:00 2023-07-28 18:00:00 Urgent Care Carroll Bueno Unknown, Attending [facility] 1.2840.114 350.1.13.10 4.2.7.2.686 [id number] [facility] 2023-02-24 09:04:36 2023-02-24 23:59:00 Outpatient R KRISTAL KYLE [facility] [id number] [facility] 2023-02-24 09:04:36 2023-02-24 23:59:00 Hospital Encounter KristalKyle [facility] 1.2840.114 350.1.13.10 4.2.7.2.686 [id number] [facility] 2023-01-13 00:00:00 2023-01-13 00:00:00 Patient Secure Msg Doctor Unassigned, [place] [facility] 1.2840.114 350.1.13.10 4.2.7.2.686 [id number] [facility] 2022-11-11 22:13:00 2022-11-11 23:41:[address] [facility] ERT [id number] [facility] 2022-11-11 22:13:00 2022-11-11 23:41:00 Emergency [place], [facility] 1.2840.114 350.1.13.10 4.2.7.2.686 [id number] [facility] 2022-11-10 16:28:00 2022-11-10 21:16:00 Emergency X KRISTA PANDA [facility] ERT [id number] [facility] 2022-11-10 16:28:00 2022-11-10 21:16:00 Emergency Krista Panda S [facility] 1.2.840.114 350.1.13.10 4.2.7.2.686 [id number] [facility] 2022-11-10 00:00:00 2022-11-10 00:00:00 Orders Only Doctor Unassigned, [place] [facility] 1.2.840.114 350.1.13.10 4.2.7.2.686 [id number] [facility] 2022-09-17 09:24:30 2022-09-17 23:59:00 Outpatient R RADIOLOGY [facility] [id number] [facility] 2022-09-17 09:24:30 2022-09-17 23:59:00 Hospital Encounter Radiology [facility] 1.2.840.114 350.1.13.10 4.2.7.2.686 [id number] [facility] 2022-09-17 00:00:00 2022-09-17 00:00:00 Orders Only Doctor Unassigned, [place] [facility] 1.2.840.114 350.1.13.10 4.2.7.2.686 [id number] [facility] 2022-05-14 16:00:00 2022-05-14 16:31:27 Outpatient R DOYLE NOVA CRAIG [facility] [id number] [facility] 2022-05-14 16:00:00 2022-05-14 16:31:27 Outpatient R DOYLE NOVA [facility] [id number] [facility] 2022-05-14 16:00:00 2022-05-14 16:31:27 Ancillary Visit Shyann Peng Craig L [facility] 1.2.840.114 350.1.13.10 4.2.7.2.686 [id number] [facility] 2022-05-11 12:34:20 2022-05-11 23:59:00 Outpatient R RADIOLOGY [facility] [id number] [facility] 2022-05-11 12:30:00 2022-05-11 23:59:00 Hospital Encounter Radiology [facility] 1.2.840.114 350.1.13.10 4.2.7.2.686 [id number] [facility] 2022-05-05 15:15:00 2022-05-05 16:11:12 Ancillary Visit Shyann Peng Craig L [facility] 1.2.840.114 350.1.13.10 4.2.7.2.686 [id number] [facility] 2022-05-05 00:00:00 2022-05-05 00:00:00 Case Management Shyann Peng [facility] 1.2.840.114 350.1.13.10 4.2.7.2.686 [id number] [facility] 2022-04-22 13:00:00 2022-04-22 13:44:43 Outpatient R DOYLE NOVA CRAIG [facility] [id number] [facility] 2022-04-22 13:00:00 2022-04-22 13:44:43 Ancillary Visit Shyann Peng Craig L [facility] 1.2.840.114 350.1.13.10 4.2.7.2.686 [id number] [facility] 2022-04-16 08:00:00 2022-04-16 08:51:54 Ancillary Visit Shyann Peng Craig L [facility] 1..840.114 350.1.13.10 4.2.7.2.686 [id number] [facility] 2022-04-08 14:30:00 2022-04-08 14:40:24 Outpatient R DOYLE NOVA [facility] [id number] [facility] 2022-04-08 14:30:00 2022-04-08 14:40:24 Office Visit Doyle Nova [facility] 1..840.114 350.1.13.10 4.2.7.2.686 [id number] [facility] 2022-04-07 00:00:00 2022-04-07 00:00:00 Orders Only Doctor Unassigned, [place] [facility] 1.840.114 350.1.13.10 4.2.7.2.686 [id number] [facility] 2022-03-25 13:30:00 2022-03-25 13:41:31 Outpatient R DOYLE NOVA [facility] [id number] [facility] 2022-03-25 13:30:00 2022-03-25 13:41:31 [facility] 1.840.114 350.1.13.10 4.2.7.2.686 [id number] [facility] 2022-03-20 00:00:00 2022-03-20 00:00:00 Orders Only Doctor Unassigned, [place] [facility] 1.2840.114 350.1.13.10 4.2.7.2.686 [id number] [facility] 2022-03-04 00:00:00 2022-03-04 00:00:00 [facility] 1.2.840.114 350.1.13.10 4.2.7.2.686 [id number] [facility] 2022-02-25 15:00:00 2022-02-25 23:59:00 [facility] [id number] 2022-02-25 13:15:00 2022-02-25 13:30:00 Office Visit Doyle Nova [facility] 1.2.840.114 350.1.13.10 4.2.7.2.686 [id number] [facility] 2022-02-25 00:00:00 2022-02-25 00:00:00 Orders Only Doctor Unassigned, [place] [facility] 1.2.840.114 350.1.13.10 4.2.7.2.686 [id number] [facility] 2022-02-17 23:02:00 2022-02-18 00:11:00 Emergency Rekha Luo Charli [facility] 1.2.840.114 350.1.13.10 4.2.7.2.686 [id number] [facility] 2022-02-17 23:02:00 2022-02-18 00:11:00 Emergency X REKHA LUO [facility] ERT [id number] [facility] 2022-02-17 00:00:00 2022-02-17 00:00:00 Orders Only Doctor Unassigned, [place] [facility] 1.2.840.114 350.1.13.10 4.2.7.2.686 [id number] [facility] 2021-11-18 13:29:28 2021-11-18 23:59:00 Hospital Encounter Santana Hendrickson [facility] 1.2.840.114 350.1.13.10 4.2.7.2.686 [id number] [facility] 2021-11-18 00:00:00 2021-11-18 23:59:00 Outpatient R SANTANA HENDRICKSON [facility] [id number] [facility] 2021-11-18 13:28:28 2021-11-18 13:28:28 Hospital Encounter Santana Hendrickson [facility] 1.2.840.114 350.1.13.10 4.2.7.2.686 [id number] [facility] 2021-05-28 08:08:11 2021-05-28 23:59:00 Outpatient R SANTANA HENDRICKSON [facility] [id number] [facility] 2021-05-28 08:00:00 2021-05-28 23:59:00 Hospital Encounter Santana Hendrickson [facility] 1.2.840.114 350.1.13.10 4.2.7.2.686 [id number] [facility] 2021-05-14 07:42:31 2021-05-14 23:59:00 Outpatient R SNATANA HENDRICKSON [facility] [id number] [facility] 2021-05-14 07:42:31 2021-05-14 23:59:00 Hospital Encounter Santana Hendrickson [facility] 1.2.840.114 350.1.13.10 4.2.7.2.686 [id number] [facility] 2020-11-26 15:45:00 2020-11-26 15:45:00 Ambulatory Pre-Reg nullFlavo r [facility] [id number] Yudy Arguello 2020-09-26 16:00:00 2020-09-27 04:59:59 Outpatient nullFlavo r [facility] [id number] Yudy Arguello 2020-08-09 09:10:00 2020-08-09 09:10:[address]ER [facility] [id number] [facility] 2020-07-19 09:10:00 2020-07-19 09:10:00 Outpatient Nancy CHIP, EVELYN [facility] [id number] [facility] 2020-05-18 19:00:00 2020-05-18 19:00:[address] PLATA [facility] [id number] [facility] 2020-05-18 10:32:37 2020-05-18 10:52:37 Laboratory Only [facility] [address] .114 350.1.13.10 4.2.7.2.686 [id number] [facility] 2020-05-18 10:32:37 2020-05-18 10:52:37 Laboratory Only Lab, [facility] Office [facility] 1.114 350.1.13.10 4.2.7.2.686 [id number] 2019-11-18 19:58:30 2019-11-18 23:55:00 Emergency X PERLACORAL TONIO [facility] ERT [id number] [facility] 2019-11-18 19:58:30 2019-11-18 23:55:00 Emergency Tonio Cohen [facility] 1..114 350.1.13.10 4.2.7.2.686 [id number] 2019-11-18 19:58:30 2019-11-18 23:55:00 Emergency Tonio Cohen [facility] 1..114 350.1.13.10 4.2.7.2.686 [id number] [facility] 2019-11-18 19:58:30 2019-11-18 19:58:30 Emergency X TONIO COHEN [facility] ERT [id number] [facility] 2019-11-13 00:00:00 2019-11-13 00:00:00 Telephone Pcp, Patient Does Not Have A [facility] 1.2.840.114 350.1.13.10 4.2.7.2.686 [id number] [facility] 2019-11-13 00:00:00 2019-11-13 00:00:00 Telephone Pcp, Patient Does Not Have A [facility] 1.2.840.114 350.1.13.10 4.2.7.2.686 [id number] 2019-11-12 00:00:00 2019-11-12 00:00:00 Telephone [facility] 1.2.840.114 350.1.13.10 4.2.7.2.686 [id number] [facility] 2019-11-12 00:00:00 2019-11-12 00:00:00 Telephone [facility] 1.2.840.114 350.1.13.10 4.2.7.2.686 [id number] 2019-11-10 10:40:09 2019-11-10 11:00:09 Laboratory Only Lab, [facility] Pob I Omaghomi, Omayemi [facility] [address] ..114 350.1.13.10 4.2.7.2.686 [id number] [facility] 2019-11-10 10:40:09 2019-11-10 11:00:09 Laboratory Only Lab, Adc Fam b I [facility] .0.114 350.1.13.10 4.2.7.2.686 [id number] 2019-11-10 10:40:00 2019-11-10 10:40:00 Outpatient R MARELY STEVE [facility] [id number] [facility] Results Test Description Test Time Test Comments Results Resul t Comments Source XR HAND 3+ VW RIGHT 2023-07-03 8 00:07:37 EXAM: XR HAND 3+ VW RIGHT HISTORY: middle and ring finger pain, swelling and bruising, smashed her fingers ingarage door COMPARISON: January 2022 FINDINGS: Imaging of the hand demonstrates osteopenia. 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 Diffuse interphalangeal jointspace narrowing with small marginal osteophytes is present. Alignment ismaintained. No lytic or blastic bony lesion is noted. No aggressive bonydestructive change or periosteal reaction is appreciated. [facility]* Test Item Value Reference Range Interpretation Comme nts APPEARANCE (test code = 7559587587) Clear Clear COLOR (test code = 4772052051) Straw Yellow A PH (test code = 5817291828) 4.8-8.0 SP GRAVITY (test code = 1221997702) 1.003-1.030 GLU U QUAL (test code = 4241242639) Normal Normal BLOOD (test code = 3228123249) 1+ Negative A KETONES (test code = 5109617664) Negative Negative PROTEIN (test code = 2887-8) Negative Negative UROBILIN (test code = 2000519009) Normal Normal BILIRUBIN (test code = 9783119641) Negative Negative NITRITE (test code = 8310955581) Negative Negative LEUK CONCHITA (test code = 2680329844) Negative Negative RBC/HPF (test code = 3628409438) See_Comment [Automated [employer]] The system which generated this result transmitted reference range: 0 - 3 HPF. The reference range was not used to interpret this result as normal/abnormal. WBC/HPF (test code = 1523386348) See_Comment [Automated [employer]] The system which generated this result transmitted reference range: 0 - 5 HPF. The reference range was not used to interpret this result as normal/abnormal. BACTERIA (test code = 9770083978) Few Negative A MUCOUS (test code = 9345009929) Slight Negative LPF A SQ EPITH (test code = 1327567579) <1 HPF Lab Interpretation (test code = 78972-2) Abnormal [facility] [id number] 02:17:00* Test Item Value Reference Range Interpretation Comme nts TROPONIN I (test code = 6632393579) <0.012 See_Comment [Automated message] The system which generated this result transmitted reference range: <=0.034 ng/mL. The reference range was not used to interpret this result as normal/abnormal. SUSANNA (test code = SUSANNA) Equal or Less than 0.034 ng/ml---Normal ?Note: Cardiac troponin begins to rise 3-4 hours after the onset of ischemia. Repeat in 4-6 hours if the sample was drawn within 3-4 hours of the onset of the symptom and found normal. Between 0.035 and 0.120 ng/mL--- Borderline. Questionable myocardial injury or necrosis ? ?Note: Serial measurement may be necessary to confirm or exclude the diagnosis of myocardial injury or necrosis; Clinical correlation (symptoms, EKGs, imaging studies, and others) required; Repeat in 4-6 hours if clinically indicated. ? Equal or Higher than 0.121 ng/mL---Abnormal. Myocardial Injury or Necrosis Likely ? Biotin has been reported to cause a negative bias, interpret results relative to patient's use of biotin. ? Lab Interpretation (test code = 22250-1) Normal [facility] [id number] 02:14:00* Test Item Value Reference Range Interpretation Comme nts NT-proBNP (test code = 8132818278) 62 pg/mL See_Comment [Automated message] The system which generated this result transmitted reference range: <=125. The reference range was not used to interpret this result as normal/abnormal. SUSANNA (test code = SUSANNA) Biotin has been reported to cause a negative bias, interpret results relative to patient's use of biotin. Lab Interpretation (test code = 03816-4) Normal [facility] (NA, K, CL, CO2, GLUCOSE, BUN, CREATININE, CA)2019-11-19 02:05:00* Test Item Value Reference Range Interpretation Comme nts NA (test code = 4756826385) 135 mmol/L 135-145 K (test code = 4139654955) 3.8 mmol/L 3.5-5 CL (test code = 3802827770) 100 mmol/L 98-108 CO2 TOTAL (test code = 7613192030) 23 mmol/L 23-31 AGAP (test code = 2323464523) 2-16 BUN (test code = 6149965756) 17 mg/dL 7-23 GLUCOSE (test code = 3027388160) 146 mg/dL 70-110 H CREATININE (test code = 0193372391) 0.86 mg/dL 0.5-1.04 CALCIUM (test code = 7495255014) 9.3 mg/dL 8.6-10.6 eGFR Calculation (Non-) (test code = 6750478363) mL/min/1.73m2 eGFR Calculation () (test code = 2705034125) mL/min/1.73m2 SUSANNA (test code = SUSANNA) Association of Glomerular Filtration Rate (GFR) and Staging of Kidney Disease* + --+ --+ ------+| GFR (mL/min/1.73 m2) ?| With Kidney Damage ?| ?Without Kidney Damage+ --------+ --------+ +| ?>90 ?| ?Stage one ?| ? Normal ?+ ---+ ---+ -------+| ?60-89 ?| ?Stage two ?| ? Decreased GFR ? + --+ --+ ------+| ?30-59 ?| ?Stage three ?| ? Stage three ? + --+ --+ ------+| ?15-29 ?| ?Stage four ? | ? Stage four ?+ ---+ ---+ -------+| ?<15 (or dialysis) ? ?| ?Stage five ? | ? Stage five ?+ ---+ ---+ -------+ *Each stage assumes the associated GFR level has been in effect for at least three months. ?Stages 1 to 5, with or without kidney disease, indicate chronic kidney disease. Notes: Determination of stages one and two (with eGFR >59mL/min/1.73 m2) requires estimation of kidney damage for at least three months as defined by structural or functional abnormalities of the kidney, manifested by either:Pathological abnormalities or Markers of kidney damage (including abnormalities in the composition of the blood or urine or abnormalities in imaging tests). Lab Interpretation (test code = 48633-0) Abnormal [facility] (ALB, T.PRO, BILI T, BU/BC, ALT, AST, ALK PHOS)2019-11-19 02:05:00* Test Item Value Reference Range Interpretation Comme nts TOTAL BILI (test code = 4066389707) 0.5 mg/dL 0.1-1.1 BILI UNCON (test code = 1975220913) 0.5 mg/dL 0.1-1.1 BILI CONJ (test code = 8758987106) 0.0 mg/dL 0-0.3 T PROTEIN (test code = 1523881462) 8.2 g/dL 6.3-8.2 ALBUMIN (test code = 3753550424) 4.3 g/dL 3.5-5 ALK PHOS (test code = 3046688743) 98 U/L 34-122 ALTv (test code = 1742-6) 50 U/L 5-35 H AST(SGOT) (test code = 8052842936) 43 U/L 13-40 H Lab Interpretation (test cod e = 25603-5) Abnormal [facility] Worth[facility] [id number] 02:05:00* Test Item Value Reference Range Interpretation Comme nts LIPASE (test code = 3165478735) 121 U/L 0-220 Lab Interpretation (test cod e = 10359-5) Normal [facility] Worth[facility] with [id number] 01:51:00* Test Item Value Reference Range Interpretation Comme nts WBC (test code = 6690-2) See_Comment [Automated [employer]] The system which generated this result transmitted reference range: 4.30 - 11.10 10*3/?L. The reference range was not used to interpret this result as normal/abnormal. RBC (test code = 789-8) See_Comment [Automated [employer]] The system which generated this result transmitted reference range: 3.93 - 5.25 10*6/?L. The reference range was not used to interpret this result as normal/abnormal. HGB (test code = 718-7) 12.7 g/dL 11.6-15 HCT (test code = 4544-3) 37.9 % 35.7-45.2 MCV (test code = 787-2) 84.4 fL 80.6-95.5 MCH (test code = 785-6) 28.3 pg 25.9-32.8 MCHC (test code = 786-4) 33.5 g/dL 31.6-35.1 RDW-SD (test code = 99700-2) 39.1 fL 39-49.9 RDW-CV (test code = 788-0) 12.8 % 12-15.5 PLT (test code = 777-3) See_Comment [Automated [employer]] The system which generated this result transmitted reference range: 166 - 358 10*3/?L. The reference range was not used to interpret this result as normal/abnormal. MPV (test code = 34282-3) 8.6 fL 9.5-12.9 L NRBC/100 WBC (test code = 9967994607) See_Comment [Automated [employer]] The system which generated this result transmitted reference range: 0.0 - 10.0 /100 WBCs. The reference range was not used to interpret this result as normal/abnormal. NRBC x10^3 (test code = 2172860887) <0.01 See_Comment [Automated [employer]] The system which generated this result transmitted reference range: 10*3/?L. The reference range was not used to interpret this result as normal/abnormal. GRAN MAT (NEUT) % (test code = 770-8) 86.3 % IMM GRAN % (test code = 4864750697) 1.10 % LYMPH % (test code = 736-9) 8.3 % MONO % (test code = 5905-5) 4.1 % EOS % (test code = 713-8) 0.0 % BASO % (test code = 706-2) 0.2 % GRAN MAT x10^3(ANC) (test code = 9262399658) 9.10 10*3/uL 1.88-7.09 H IMM GRAN x10^3 (test code = 0649582215) 0.12 10*3/uL 0-0.06 H LYMPH x10^3 (test code = 731-0) 0.88 10*3/uL 1.32-3.29 L MONO x10^3 (test code = 742-7) 0.43 10*3/uL 0.33-0.92 EOS x10^3 (test code = 711-2) <0.03 0.03-0.39 L BASO x10^3 (test code = 704-7) <0.03 0.01-0.07 Lab Interpretation (test code = 78328-5) Abnormal [facility] 1 [id number] 01:26:51CHEST ONE VIEW HISTORY: ?Malaise TECHNIQUE: ?AP view of the chest is obtained. FINDINGS: Slightly increased hazy opacities are seen in the periphery ofthe lungs. Heart size is borderline enlarged. Nopleural effusion orpneumothorax is seen. CONCLUSIONS: 1. Slightly increased hazy opacities in the periphery of the lungs can beseen with atypical viral infection including but not limited COVID-19. Ak lorena, Radiant Results Inft User - 11/18/2019 8:27 PM CDTCHEST ONE VIEWHISTORY: MalaiseTECHNIQUE: AP view of the chest is obtained.FINDINGS: Slightly increased hazy opacities are seen in the periphery ofthe lungs. Heart size is borderline enlarged. No pleural effusion orpneumothorax is seen.CONCLUSIONS: 1. Slightly increased hazy opacities in the periphery of the lungs can beseen with atypical viralinfection including but not limited COVID-19.[facility]"
[2024-09-13] MEDS ORDERED: KETOROLAC 30 MG/ML INJ ONE (15:11)
[2024-09-13 15:35] LABS: Absolute Eosinophils 0.2 K/uL (0-0.5); Absolute Lymphocytes (CBC) 1.5 K/uL (0.7-4.9); Absolute Monocytes 0.4 K/uL (0.1-1.3); Basophils % 0.6 % (0-1.3); Eosinophils % 4.4 % (0-4.4); Hematocrit 38.4 % (36.0-45.0); Hemoglobin 13.3 g/dL (12.0-15.0); Lymphocytes % 28.3 % (15.3-44.8); MCH 30.6 pg (27.0-35.0); MCHC 34.6 g/dL (32.0-36.0); MCV 88.3 fL (80-100); MPV 7.2 fL (7.6-11.3); Monocytes % 7.4 % (3.3-12.3); Neutrophils % 59.3 % (41.7-73.7); Platelets 279 thou/uL (152-406); RBC Red Blood Cell Count 4.35 M/uL (3.86-4.86); Red Cell Distribution Width 13.3 % (12.1-15.2)
[2024-09-13 15:52] LABS: Albumin 3.8 g/dL (3.4-5.0); Anion Gap 9.8 mEq/L (5.0-15.0); Bilirubin Total 0.7 mg/dL (0.2-1.0); Globulin 3.9 g/dL (2.3-3.5); Potassium 3.8 mEq/L (3.5-5.1); Protein, Total 7.7 g/dL (6.4-8.2)
--- NOTE | 2024-09-13 17:48 | RAD REPORT ---
EXAM: CT Head Brain Wo Cont HISTORY: HEADACHE COMPARISON: 09/13/2024 TECHNIQUE: Multiple contiguous axial images were obtained for a CT of the brain without contrast. Sag ittal and coronal reformats were performed. One or more of the following dose reduction techniques were used: Automated exposure control, adjus tment of the mA and kV according to patient size, and iterative reconstruction. Unless otherwise specified, incidental findings do not require dedicated imaging follow-up. FINDINGS: No evidence of hydrocephalus, intracranial hemorrhage, or extra-axial fluid collection. The brain is normal in morphology. The calvarium is intact. The visualized paranasal sinuses and mastoid air cells are essentially clear . IMPRESSION: No evidence of acute intracranial abnormality.
--- NOTE | 2024-09-13 17:58 | RAD REPORT ---
EXAMINATION: CT MAXILLOFACIAL WITH CONTRAST CLINICAL INDICATION: FACIAL PAIN TECHNIQUE: Axial images were obtained through the facial bones and orbits following intravenous contr ast administration. Sagittal and coronal reconstructions were created from the data. One or more of the following dose reduction techniques were used: Automated exposure control, adjustment of the mA a nd/or kV according to patient size, and/or iterative reconstruction. Unless otherwise specified, incidental findings do not require dedicated imaging follow-up. COMPARISON: No prior exam. FINDINGS: SOFT TISSUE: No significant abnormalities. No abnormal enhancement. BONES: No evidence of fracture, dislocation, or aggressive osseous lesions. No lesion of the visuali zed skull base or calvarium. ORBITS: The globes are intact. No intraorbital hemorrhage or mass. SINUSES: The paranasal sinuses and tympanomastoid cavities are predominantly clear. IMPRESSION: No acute or significant abnormalities. No abnormal enhancement. If there is persistent clinical concern for trigeminal neuralgia or skull base abnormality, additiona l evaluation by dedicated MRI with provide improved assessment.
--- NOTE | 2024-09-13 18:05 | ER ---
Nurse's Notes [facility] Name: Prabha Camara Age: 69 yrs Sex: Female : 1955 Arrival Date: 09/13/2024 Time: 14:10 Bed 12 Private MD: Diagnosis: Facial pain Presentation: 09/13 14:17 Chief complaint: Patient states: c/o severe pain to right face when she moves her face me1 or touches it. Cannot brush her teeth or eat. Pain is 10/10 and sharp, started yesterday. Coronavirus screen: Vaccine status: Patient reports being unvaccinated. Ebola Screen: No symptoms or risks identified at this time. Initial Sepsis Screen: Does the patient meet any 2 criteria? No. Patient's initial sepsis screen is negative. Does the patient have a suspected source of infection? No. Patient's initial sepsis screen is negative. Risk Assessment: Do you want to hurt yourself or someone else? Patient reports no desire to harm self or others. Onset of symptoms was September 12, 2024. 14:17 Method Of Arrival: [place] [facility] [place] 14:17 Acuity: VERÓNICA 4 me1 Historical: - Allergies: 14:19 Codeine; me1 - PMHx: 14:19 Diabetes mellitus; me1 - PSHx: 14:19 hernia repair; me1 - Immunization history:: Adult Immunizations unknown. - Infectious Disease History:: Denies. - Social history:: Smoking status: Patient denies any tobacco usage or history of. Screenin:03 [facility] ED Fall Risk Assessment (Adult) History of falling in the last 3 months, kj2 including since admission No falls in past 3 months (0 pts) Confusion or Disorientation No (0 pts) Intoxicated or Sedated No (0 pts) Impaired Gait No (0 pts) Mobility Assist Device Used No (0 pt) Altered Elimination No (0 pt) Score/Fall Risk Level 0 - 2 = Low Risk Maintained a safe environment, Hourly rounding (assess needs \T\ fall precautionary measures) done. Abuse screen: Denies threats or abuse. Denies injuries from another. Nutritional screening: No deficits noted. Tuberculosis screening: No symptoms or risk factors identified. Assessment: 15:02 General: Appears in no apparent distress. Behavior is cooperative. Pain: Complains of kj2 pain in right side of face Pain currently is 10 out of 10 on a pain scale. Neuro: Level of Consciousness is awake, alert, obeys commands, Oriented to person, place, time, situation. Cardiovascular: Patient's skin is warm and dry. Respiratory: Airway Respiratory effort is unlabored. GI: No signs and/or symptoms were reported involving the gastrointestinal system. : No signs and/or symptoms were reported regarding the genitourinary system. 16:00 Reassessment: Patient appears in no apparent distress at this time. Patient and/or kj2 family updated on plan of care and expected duration. Pain level reassessed. Patient is alert, oriented x 3, equal unlabored respirations, skin warm/dry/pink. 17:00 Reassessment: Patient appears in no apparent distress at this time. Patient and/or kj2 family updated on plan of care and expected duration. Pain level reassessed. Patient is alert, oriented x 3, equal unlabored respirations, skin warm/dry/pink. 18:09 Reassessment: Patient appears in no apparent distress at this time. Patient and/or kj2 family updated on plan of care and expected duration. Pain level reassessed. Patient is alert, oriented x 3, equal unlabored respirations, skin warm/dry/pink. Vital Signs: 14:17 BP 158 / 89; Pulse 78; Resp 16; Temp 98.1; Pulse Ox 98% ; Weight 86.64 kg; Height 5 ft. me1 3 in. ; Pain 10/10; 16:00 BP 152 / 86; Pulse 84; Resp 20; Pulse Ox 98% on R/A; kj2 17:00 BP 125 / 76; Pulse 78; Resp 20; Pulse Ox 100% on R/A; kj2 18:09 BP 121 / 72; Pulse 76; Resp 20; Temp 97.9; Pulse Ox 100% on R/A; kj2 14:17 Body Mass Index 33.83 (86.64 kg, 160.02 cm) me1 14:17 Pain Scale: Adult me1 ED Course: 14:13 Patient arrived in ED. im 14:19 Triage completed. me1 14:19 Arm band placed on Patient placed in waiting room. me1 14:24 Khang Acevedo MD is Attending Physician. rt 15:00 Apoorva Price RN is Primary Nurse. kj2 15:04 Patient has correct armband on for positive identification. Provided Education on: call kj2 light. 15:29 CMP Sent. kj2 15:29 CBC with Diff Sent. kj2 15:30 Inserted saline lock: 20 gauge in left antecubital area, using aseptic technique. Blood kj2 collected. Flushed with 10 mL NS. 16:06 CT Head Brain wo Cont In Process Unspecified. EDMS 16:06 CT Facial Bones W/ Con \T\ Mpr In Process Unspecified. EDMS 18:03 Morris Dumont MD is Referral Physician. rt 18:10 No provider procedures requiring assistance completed. IV discontinued, intact, kj2 bleeding controlled, No redness/swelling at site. Pressure dressing applied. Administered Medications: 15:29 Drug: Ketorolac IVP 15 mg IVP once Route: IVP; Site: left antecubital; kj2 17:45 Follow up: Response: No adverse reaction kj2 Medication: 15:04 VIS not applicable for this client. kj2 Outcome: 18:04 Discharge ordered by MD. rt 18:10 Discharged to home ambulatory, kj2 18:10 Condition: stable 18:10 Discharge instructions given to patient, Instructed on discharge instructions, follow up and referral plans. Demonstrated understanding of instructions, follow-up care, 18:21 Patient left the ED. me1 Signatures: Dispatcher [employer] Khang Cuenca MD MD rt Katerin Concepcion Michelle, RN RN me1 Apoorva Price, HUSSEIN RN kj2
--- NOTE | 2024-09-13 18:05 | EDPHYS ---
Physician Documentation [facility] Name: Prabha Camara Age: 69 yrs Sex: Female : 1955 Arrival Date: 09/13/2024 Time: 14:10 Bed 12 Private MD: ED Physician Khang Acevedo HPI: 09/13 17:48 This 69 yrs old Female presents to ER via Ambulatory with complaints of Facial rt pain. 17:48 Patient presents to the ED with a right sided facial pain. States has been present for rt several months, worsening over the past day. States it is worse when she chews. Denies other acute complaints at this time, symptoms are moderate in severity, no other aggravating relieving factors.. Historical: - Allergies: 14:19 Codeine; me1 - PMHx: 14:19 Diabetes mellitus; me1 - PSHx: 14:19 hernia repair; me1 - Immunization history:: Adult Immunizations unknown. - Infectious Disease History:: Denies. - Social history:: Smoking status: Patient denies any tobacco usage or history of. ROS: 17:48 Constitutional: Negative for fever, chills, and weight loss, Cardiovascular: Negative rt for chest pain, palpitations, and edema, Respiratory: Negative for shortness of breath, cough, wheezing, and pleuritic chest pain, Abdomen/GI: Negative for abdominal pain, nausea, vomiting, diarrhea, and constipation, Skin: Negative for injury, rash, and discoloration, 17:48 ENT: Positive for Facial pain, negative for dental pain, swelling, Exam: 17:48 Constitutional: This is a well developed, well nourished patient who is awake, alert, rt and in no acute distress. Chest/axilla: Normal chest wall appearance and motion. Nontender with no deformity. No lesions are appreciated. Cardiovascular: Regular rate and rhythm with a normal S1 and S2. No gallops, murmurs, or rubs. Normal PMI, no JVD. No pulse deficits. Respiratory: Lungs have equal breath sounds bilaterally, clear to auscultation and percussion. No rales, rhonchi or wheezes noted. No increased work of breathing, no retractions or nasal flaring. Abdomen/GI: Soft, non-tender, with normal bowel sounds. No distension or tympany. No guarding or rebound. No evidence of tenderness throughout. Skin: Warm, dry with normal turgor. Normal color with no rashes, no lesions, and no evidence of cellulitis. MS/ Extremity: Pulses equal, no cyanosis. Neurovascular intact. Full, normal range of motion. 17:48 Head/face: Mild tenderness over the right TMJ, no clicking, no tenderness over temporal arteries. Vital Signs: 14:17 BP 158 / 89; Pulse 78; Resp 16; Temp 98.1; Pulse Ox 98% ; Weight 86.64 kg; Height 5 ft. me1 3 in. ; Pain 10/10; 16:00 BP 152 / 86; Pulse 84; Resp 20; Pulse Ox 98% on R/A; kj2 17:00 BP 125 / 76; Pulse 78; Resp 20; Pulse Ox 100% on R/A; kj2 18:09 BP 121 / 72; Pulse 76; Resp 20; Temp 97.9; Pulse Ox 100% on R/A; kj2 14:17 Body Mass Index 33.83 (86.64 kg, 160.02 cm) me1 14:17 Pain Scale: Adult me1 MDM: 15:00 Medical Screening Exam initiated rt 18:09 Differential Diagnosis Trigeminal neuralgia, TMJ. Data reviewed: vital signs, nurses rt notes, lab test result(s), radiologic studies. I considered the following discharge prescriptions or medication management in the emergency department Medications were administered in the Emergency Department. See MAR. Independent interpretation of the following test(s) in the Emergency Department CT Scan: My interpretation is No intracranial hemorrhage seen on interpretation of CT scan images. Care significantly affected by the following chronic conditions: Diabetes. Counseling: I had a detailed discussion with the patient and/or guardian regarding the historical points, exam findings, and any diagnostic results supporting the discharge/admit diagnosis, lab results, radiology results, the need for outpatient follow up, to return to the emergency department if symptoms worsen or persist or if there are any questions or concerns that arise at home. Response to treatment: the patient's symptoms have markedly improved after treatment. 09/13 15:08 Order name: CBC with Diff; Complete Time: 15:53 rt 09/13 15:08 Order name: CMP; Complete Time: 15:53 rt 09/13 15:08 Order name: CT Head Brain wo Cont; Complete Time: 17:59 rt 09/13 15:08 Order name: CT Facial Bones W/ Con \T\ Mpr; Complete Time: 17:59 rt Administered Medications: 15:29 Drug: Ketorolac IVP 15 mg IVP once Route: IVP; Site: left antecubital; kj2 17:45 Follow up: Response: No adverse reaction kj2 Disposition Summary: 09/13/24 18:04 Discharge Ordered Notes: Location: Home rt Problem: new rt Symptoms: have improved rt Condition: Stable rt Diagnosis - Facial pain rt Followup: rt - With: Morris Dumont MD - When: 2 - 3 days - Reason: Discharge Instructions: - Discharge Summary Sheet rt - Trigeminal Neuralgia rt Forms: - Medication Reconciliation Form rt - Antibiotic Education rt - Prescription Opioid Use rt - Patient Portal Instructions rt - Leadership Thank You Letter rt Prescriptions: - Tegretol 200 mg Oral tablet - take 1 tablet ORAL route every 12 hours as needed; 20 tablet; Refills: 0, rt Product Selection Permitted Signatures: Dispatcher [employer] Khang Cuenca MD MD rt Liana Restrepo, RN RN me1 Apoorva Price RN RN kj2
[2024-09-13 18:45] VITALS: O2SAT 100
[2024-09-13 18:47] VITALS: BP 121/72; TEMP 97.9
== END 2024-09-13 18:21 | disposition home or self-care (01) ==
LOC: ER 14:10
DX: R51.9 Headache, unspecified (principal); E11.9 Type 2 diabetes mellitus without complications
CPT/HCPCS: 85025; 36415; 80053; 70450; 70487; 76377; Q9967; 96374; 99284